=== PATIENT | male | born 1965 | race Caucasian/White ===

== ENCOUNTER 2017-09-21 20:25 | Emergency (ER) | payer BC ==
[~2017-09-21] VITALS: Ht 188 cm; Wt 86.4 kg
[2017-09-21 20:26] VITALS: BP 155/83; PULSE 70; RESP 16; TEMP 98.2; O2SAT 96
[2017-09-21] MEDS ORDERED: FAMOTIDINE 20 MG/2 ML VIAL IV PUSH ONE (21:45)
[2017-09-21] MEDS ORDERED: TRIAMCINOLONE ACETONIDE 40 MG/ML VIAL IM ONE (21:45)
[2017-09-21] MEDS ORDERED: EPINEPHrine HCL (1:1000) 1 MG/ML VIAL IM ONE (21:45)
--- NOTE | 2017-09-21 21:55 | PD ---
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 today the lesions on his arms are just starting but he is schedule to fly tomorrow and wanted to get early treatment so it doesn't worsen. all: tree pollen but not to nkda pmhx/pshx; denies except for bad seasonal allergies. PFSH Past Medical History Integumentary: Yes (allergic react) Tetanus Vaccination: < 5 Years Influenza Vaccination: No Past Surgical History Tonsillectomy: Yes Social History Alcohol Use: No Tobacco Use: No Substance Use: No Allergies-Medications (Allergen,Severity, Reaction): Uncoded Allergies: tree pollen (Allergy, Intermediate, rash, 09/21/17) Review of Systems General / Constitutional: No: Fever Eyes: No: Visual changes HENT: No: Headaches Cardiovascular: No: Chest Pain or Discomfort Respiratory: No: Shortness of Breath Gastrointestinal: No: Abdominal Pain Genitourinary: No: Dysuria Musculoskeletal: No: Pain Skin: Positive Lesions Neurologic: No: Weakness Psychiatric: No: Depression Endocrine: No: Polydipsia Hematologic/Lymphatic: No: Easy Bruising Physical Exam Narrative GENERAL: SKIN: Warm and dry. bilateral forearms have maculopapular lesions c/w early hives not yet confluenced. pruritic but patient is trying to avoid scratching it. HEAD: Atraumatic. Normocephalic. EYES: Pupils equal and round. No scleral icterus. No injection or drainage. ENT: No nasal bleeding or discharge. Mucous membranes pink and moist. no angioedema, no uvular edema, no stridor, no wheezing NECK: Trachea midline. No JVD. CARDIOVASCULAR: Regular rate and rhythm. RESPIRATORY: No accessory muscle use. Clear to auscultation. Breath sounds equal bilaterally. GASTROINTESTINAL: Abdomen soft, non-tender, nondistended. Hepatic and splenic margins not palpable. MUSCULOSKELETAL: Extremities without clubbing, cyanosis, or edema. No obvious deformities. NEUROLOGICAL: Awake and alert. No obvious cranial nerve deficits. Motor grossly within normal limits. Five out of 5 muscle strength in the arms and legs. Normal speech. PSYCHIATRIC: Appropriate mood and affect; insight and judgment normal. Data Data Last Documented VS Orders Orders Iv Access Insert/Monitor (09/21/17 21:31) Famotidine Inj (Pepcid Inj) (09/21/17 21:45) Epinephrine (1:1000) Inj (Adrenalin (1:1 (09/21/17 21:45) Triamcinolone Inj (Kenalog-40 Inj) (09/21/17 21:45) Ed Discharge Order (09/21/17 22:36) MDM Medical Decision Making Medical Screen Exam Complete: Yes Emergency Medical Condition: Yes Medical Record Reviewed: Yes Differential Diagnosis seasonal allergy v dermatitis v angioedema v wheezing Narrative Course patient exhibited dermatologic form of allergies only, no stridor, wheezing, difficulty breathing or angioedema noted. patient tolerated treatment well. Diagnosis Primary Impression: allergic reaction Disposition: 01 DISCHARGE HOME Condition: Stable Edgardo Gunderson MD Sep 21, 2017 21:55
[2017-09-21 22:16] VITALS: BP 149/86; PULSE 59
== END 2017-09-21 22:50 | disposition home or self-care (01) ==
LOC: NEPD 20:25
DX: T78.40XA Allergy, unspecified, initial encounter (principal); L98.9 Disorder of the skin and subcutaneous tissue, unspecified
CPT/HCPCS: 96372; 96374; 99284; J0171; J3301